=== PATIENT | female | born 2000 | race Caucasian/White ===

== ENCOUNTER 2023-03-27 15:07 | Inpatient (IN) ==
[2023-03-27 15:50] LABS: ABS Eosinophils 0.1 10^3/uL (0.0-0.5); ABS Lymphocytes 1.7 10^3/uL (1.0-4.8); ABS Monocytes 0.6 10^3/uL (0.0-0.9); ABS Neutrophils 3.8 10^3/uL (1.5-7.6); Eosinophil % 1.6 %; Lymphocyte % 27.6 %; Mean Corpuscular Hemoglobin 30.1 pg (27-33); Mean Corpuscular Hgb Conc 34.8 g/dL (31-36); Mean Corpuscular Volume 86.5 fL (80-97); Mean Platelet Volume 6.9 fL (7.5-11.2); Platelet Count 361 10^3/uL (150-450); Red Blood Count 4.63 10^6/uL (3.63-4.92); Red Cell Distribution Width 12.3 % (12-17); White Blood Count 6.2 10^3/uL (3.8-11.8)
[2023-03-27 16:06] LABS: CO2 Carbon Dioxide 23 mmol/L (22-32); Chloride 105 mmol/L (101-111); Sodium 137 mmol/L (135-145)
[2023-03-27 16:07] LABS: ALT 44 U/L (7-52); AST 30 U/L (13-39); Albumin 4.3 g/dL (3.2-5.2); Albumin/Globulin Ratio 1.3 (1-3); Alkaline Phosphatase 71 U/L (35-149); Anion Gap 9 mmol/L (2-16); Blood Urea Nitrogen 20 mg/dL (6-24); Calcium 9.3 mg/dL (8.6-10.3); Globulin 3.2 g/dL (2-4); Glucose 86 mg/dL (70-100); Total Protein 7.5 g/dL (6.4-8.9); eGFR CKD-EPI 66.5 (>60)
[2023-03-27 16:14] LABS: HCG Pregnancy < 0.60 mIU/mL
[2023-03-27 16:48] LABS: TSH Ultra Thyroid Stim Horm 0.66 mcIU/mL (0.34-5.60)
[2023-03-27 16:50] LABS: Acetaminophen < 15 mcg/mL; Alcohol, S < 13 mg/dL (<13); Salicylate < 2.50 mg/dL (<30)
[2023-03-27 18:47] LABS: Urine Appearance Turbid; Urine Bilirubin Negative (Negative); Urine Blood 3+ (Negative); Urine Color Amber; Urine Glucose Negative (Negative); Urine Ketones 1+ (Negative); Urine Nitrite Negative (Negative); Urine Protein 1+(30 mg/dL) (Negative); Urine Specific Gravity 1.027 (1.002-1.030); Urine Urobilinogen Negative (Negative)
[2023-03-27 19:05] LABS: Urine Benzodiazepine Screen None Detected (None Detect); Urine Cannabinoids Screen None Detected (None Detect); Urine Opiates Screen None Detected (None Detect)
[2023-03-27 19:41] LABS: Urine Bacteria 3+ (Absent); Urine Red Blood Cell 3+(>10/hpf) (Absent); Urine Squamous Epithelial Cell Present (Absent); Urine White Blood Cell 3+(>20/hpf) (Absent)
[2023-03-27 21:29] LABS: Lithium < 0.10 mmol/L (0.6-1.2)
[2023-03-28] MEDS ORDERED: Al Hydrox/Mg Hydrox/Simet LIQ 30 ML UDC PO PRN (10:40)
[2023-03-28] MEDS: NF: Norethindrone/Eth Est 1.5/30NF TAB PO SCH (21:39)
[2023-03-29 08:18] LABS: HDL Cholesterol 40.6 mg/dL
[2023-03-29] MEDS: NF: Norethindrone/Eth Est 1.5/30NF TAB PO SCH (09:51)
[2023-03-29] MEDS: Nitrofurantoin (monohydrate/macrocrystals) 100 mg CAP PO SCH ×2 (10:43→21:16)
[2023-03-30] MEDS: Nitrofurantoin (monohydrate/macrocrystals) 100 mg CAP PO SCH ×2 (11:02→21:44)
[2023-03-30] MEDS: NF: Norethindrone/Eth Est 1.5/30NF TAB PO SCH (11:04)
[2023-03-31] MEDS: Nitrofurantoin (monohydrate/macrocrystals) 100 mg CAP PO SCH ×2 (10:32→21:31)
[2023-03-31] MEDS: NF: Norethindrone/Eth Est 1.5/30NF TAB PO SCH (10:33)
[2023-03-31 13:23] VITALS: BP 119/67
[2023-04-01] MEDS: Nitrofurantoin (monohydrate/macrocrystals) 100 mg CAP PO SCH (07:55)
[2023-04-01] MEDS: NF: Norethindrone/Eth Est 1.5/30NF TAB PO SCH (07:56)
== END 2023-04-01 12:46 | disposition home or self-care (01) | DRG 918 ==
LOC: ED 15:07 → EDHOLD 03-28 10:40 → BSU 03-28 11:23
PROVIDERS: ADMIT Psychiatry & Neurology Psychiatry; ATTEND Psychiatry & Neurology Psychiatry